=== PATIENT | female | born 1975 | race Caucasian/White ===

== ENCOUNTER 2017-02-12 16:21 | Emergency (ER) | payer SELFPAY ==
[2017-02-12] MEDS ORDERED: KETOROLAC 15 MG/1 ML SDV IVP ONE (16:35)
[2017-02-12] MEDS ORDERED: NS 1,000 ML IV ONE (16:35)
[2017-02-12] MEDS ORDERED: KETOROLAC 15 MG/1 ML SDV ONE (16:36)
--- NOTE | 2017-02-12 16:39 | EDPHY ---
H & P Stated Complaint: Acute onset right flank pain for 15 mins. Time Seen by Provider: 02/12/17 16:34 HPI/ROS: CHIEF COMPLAINT: Right flank pain HISTORY OF PRESENT ILLNESS: The patient is a 41 y/o female complaining of acute onset right flank pain this afternoon 15 minutes ago. She complains of severe waxing and waning right flank pain that radiates to her groin. She has associated suprapubic pain and nausea, but no vomiting, dysuria, or hematuria. No alleviating or aggravating factors. She denies chance of . She has no prior history of kidney stones, though her father has a history of stones. REVIEW OF SYSTEMS: Constitutional: No fever, no chills Eyes: No visual changes ENT: No sore throat Respiratory: No cough, no shortness of breath Cardiac: No chest pain Gastrointestinal: +nausea, no vomiting, no abdominal pain Genitourinary: No hematuria, no dysuria Musculoskeletal: No leg pain or swelling Skin: No rash Neurological: No headache, no numbness, no weakness Psychiatric: No depression - Personal History Current Tetanus Diphtheria and Acellular Pertussis (TDAP): Unsure - Medical/Surgical History PMH: Denies Hx Asthma: No Hx Chronic Respiratory Disease: No Hx Diabetes: No Hx Cardiac Disease: No Hx Renal Disease: No Hx Cirrhosis: No Hx Alcoholism: No Hx HIV/AIDS: No Hx Splenectomy or Spleen Trauma: No Other PMH: Denies - Social History Smoking Status: Never smoked Additional Social History: Lives in [place]. Nonsmoker. . - Physical Exam Exam: General Appearance: Alert, appears in pain Eyes: Pupils equal and round, no conjunctival pallor or injection ENT, Mouth: Mucous membranes moist Neck: Normal inspection Respiratory: Lungs are clear to auscultation Cardiovascular: Regular rate and rhythm Gastrointestinal: Abdomen is soft and non-tender Back: Right CVA tenderness Neurological: A&O, nonfocal exam Skin: Warm and dry, no rash Extremities: Nontender, no pedal edema Psychiatric: Mood and affect normal Constitutional: Initial Vital Signs Temperature (C) 36.6 C 02/12/17 16:22 Heart Rate 70 02/12/17 16:22 Respiratory Rate 20 02/12/17 16:22 Blood Pressure 121/85 H 02/12/17 16:22 O2 Sat (%) 100 02/12/17 16:22 O2 Delivery Mode Room Air Allergies/Adverse Reactions: No Known Allergies Allergy (Unverified 02/12/17 16:40) Home Medications: Medication Instructions Recorded Ondansetron Odt [Zofran Odt 4 mg 4 mg PO Q4 PRN #6 tab 02/12/17 (*)] oxyCODONE/APAP 5/325 [Percocet 1 tab PO Q4 PRN #10 tab 02/12/17 5/325 (*)] Medical Decision Making - Diagnostics Imaging Results: Imaging Impressions Abdomen/Pelvis CT 02/12/17 16:35 Impression: 1. Mild right hydronephrosis and hydroureter due to a tiny calculus in the distal right ureter, at ureterovesical junction. 2. Bilateral nephrolithiasis. 3. No intra-abdominal mass or lymphadenopathy. Findings discussed with Emergency Department physician, Sirisha Jaimes, 2016, 17:45. Attention: This CT examination is specifically designed to evaluate patients who are clinically suspected of having acute obstructive uropathy. This examination does not use radiographic contrast, and as such, provides only a limited evaluation of the abdomen, pelvis and retroperitoneum. If there is further clinical suspicion for pathological conditions other than obstructive uropathy, a complete CT evaluation of the abdomen and pelvis utilizing intravenous, oral, and rectal contrast should be considered. Imaging: Discussed imaging studies w/ anaesthetic technician Radiologist ED Course/Re-evaluation: This is a 41 y/o female who presents with acute onset right flank pain and suprapubic pain for the last 15 minutes. She has right CVA tenderness and a benign abdomen on exam. Presentation consistent acute severe renal colic. Plan for IV, labs, UA, abdominal CT, and symptom management. 15mg IV Toradol, 4mg IV Zofran, 1mg IV Dilaudid, and 1L IV NS administered. Abdominal CT shows right kidney stone. Reevaluated patient and discussed results. She feels improved after medication administration. Plan to observe for another hour and discharge home if she remains stable with her pain well- managed. Reassessed patient. She is feeling much better. Abdomen remains benign. She will be discharged with scripts for Percocet and Zofran along with ibuprofen directions and referral to urology for follow up. Return precautions discussed. She is comfortable with discharge plan. Differential Diagnosis: Differential diagnosis includes though it is not limited to appendicitis, cholecystitis, diverticulitis, pyelonephritis, bowel perforation, small bowel obstruction. - Data Points Laboratory Results: Laboratory Results 02/12/17 16:41 02/12/17 16:41 02/12/17 02/12/17 02/12/17 16:41 16:41 16:41 WBC 7.34 10^3/uL 10^3/uL (3.80-9.50) RBC 4.55 10^6/uL 10^6/uL (4.18-5.33) Hgb 14.5 g/dL g/dL (12.6-16.3) Hct 41.1 % % (38.0-47.0) MCV 90.3 fL fL (81.5-99.8) MCH 31.9 pg pg (27.9-34.1) MCHC 35.3 g/dL g/dL (32.4-36.7) RDW 12.3 % % (11.5-15.2) Plt Count 241 10^3/uL 10^3/uL (150-400) MPV 9.6 fL fL (8.7-11.7) Neut % (Auto) 58.5 % % (39.3-74.2) Lymph % (Auto) 31.9 % % (15.0-45.0) [place] % (Auto) 8.3 % % (4.5-13.0) Eos % (Auto) 0.8 % % (0.6-7.6) Baso % (Auto) 0.4 % % (0.3-1.7) Nucleat RBC Rel Count 0.0 % % (0.0-0.2) Absolute Neuts (auto) 4.29 10^3/uL 10^3/uL (1.70-6.50) Absolute Lymphs (auto) 2.34 10^3/uL 10^3/uL (1.00-3.00) Absolute Monos (auto) 0.61 10^3/uL 10^3/uL (0.30-0.80) Absolute Eos (auto) 0.06 10^3/uL 10^3/uL (0.03-0.40) Absolute Basos (auto) 0.03 10^3/uL 10^3/uL (0.02-0.10) Absolute Nucleated RBC 0.00 10^3/uL 10^3/uL (0-0.01) Immature Gran % 0.1 % % (0.0-1.1) Immature Gran # 0.01 10^3/uL 10^3/uL (0.00-0.10) Sodium 142 mEq/L mEq/L (134-144) Potassium 3.3 mEq/L L mEq/L (3.5-5.2) Chloride 104 mEq/L mEq/L (97-110) Carbon Dioxide 23 mEq/l mEq/l (22-31) Anion Gap 15 mEq/L mEq/L (8-16) BUN 14 mg/dL mg/dL (7-23) Creatinine 0.7 mg/dL mg/dL (0.6-1.0) Estimated GFR > 60 Glucose 106 mg/dL H mg/dL (70-100) Calcium 9.7 mg/dL mg/dL (8.5-10.4) Beta HCG, Qual NEGATIVE Medications Given: Discontinued Medications Hydromorphone HCl (Dilaudid) 1 mg IVP EDNOW ONE Stop: 02/12/17 16:46 Last Admin: 02/12/17 16:51 Dose: 1 mg Sodium Chloride (Ns) 1,000 mls @ 3,000 mls/hr IV EDNOW ONE Stop: 02/12/17 16:54 Last Admin: 02/12/17 16:40 Dose: 1,000 mls Ketorolac Tromethamine (Toradol) 15 mg IVP EDNOW ONE Stop: 02/12/17 16:36 Last Admin: 02/12/17 16:40 Dose: 15 mg Ondansetron HCl (Zofran) 4 mg IVP EDNOW ONE Stop: 02/12/17 16:46 Last Admin: 02/12/17 16:51 Dose: 4 mg Ondansetron HCl (Zofran Odt 4 Mg Prepack#2) 1 btl TAKEHOME EDNOW ONE Stop: 02/12/17 17:49 Last Admin: 02/12/17 18:49 Dose: 1 btl Oxycodone/Acetaminophen (Percocet 5/325mg Prepack#4) 1 btl TAKEHOME EDNOW ONE Stop: 02/12/17 17:49 Last Admin: 11/09/17 18:49 Dose: 1 btl Oxycodone/Acetaminophen (Percocet 5/325) 1 tab PO EDNOW ONE Stop: 02/12/17 18:41 Last Admin: 02/12/17 18:48 Dose: 1 tab Departure - Departure Disposition: Home, Routine, Self-Care Clinical Impression: Ureteral stone Condition: Good Instructions: Oxycodone/Acetaminophen (By mouth), Ondansetron (By mouth), Kidney Stones (ED), How to Strain Your Urine (ED) Additional Instructions: 1. Take 600mg ibuprofen 3 times daily for the next few days. 2. Use Percocet as prescribed every 4 hours for severe pain not improved by ibuprofen. 3. Use Zofran as prescribed every 6 hours as needed for nausea or vomiting. 4. Strain urine as directed. 5. Follow up with the urologist you have been referred to next week. 6. Return to the ED for worsening of condition. Referrals: Lucas Salomon MD [Medical Doctor] - As per Instructions Prescriptions: Ondansetron Odt [Zofran Odt 4 mg (*)] 4 mg PO Q4 PRN #6 tab PRN Reason: Nausea oxyCODONE/APAP 5/325 [Percocet 5/325 (*)] 1 tab PO Q4 PRN #10 tab PRN Reason: pain Report Scribed for: Sirisha Jaimes Report Scribed by: Chelsey Leonard Date of Report: 02/12/17 Time of Report: 17:06 Physician Review and Approval Statement: 02/12/17 17:06 Portions of this note were transcribed by a medical coder. I personally performed a history, physical exam, medical decision making, and confirmed accuracy of information the transcribed note.
[2017-02-12] MEDS ORDERED: HYDROmorphONE/DILAUDID 1 MG/ML INJ IVP ONE (16:45)
[2017-02-12] MEDS ORDERED: ONDANSETRON 4 MG/2 ML VIAL IVP ONE (16:45)
[2017-02-12] MEDS ORDERED: HYDROmorphONE/DILAUDID 1 MG/ML INJ ONE (16:46)
[2017-02-12] MEDS ORDERED: ONDANSETRON 4 MG/2 ML VIAL ONE (16:46)
[2017-02-12 17:01] LABS: % IMMATURE GRANULYOCYTES 0.1 % (0.0-1.1); ABSOLUTE IMMATURE GRANULOCYTES 0.01 10^3/uL (0.00-0.10); ADD DIFF? NO; ADD MORPH? NO; ADD SCAN? NO; ATYPICAL LYMPHOCYTE FLAG 40 (0-99); FRAGMENT RBC FLAG 0 (0-99); HEMATOCRIT 41.1 % (38.0-47.0); HEMOGLOBIN 14.5 g/dL (12.6-16.3); LEFT SHIFT FLG 0 (0-99); LIPEMIA HEMOLYSIS FLAG 90 (0-99); MEAN CELL HEMOGLOBIN 31.9 pg (27.9-34.1); MEAN CELL HEMOGLOBIN CONCENTR. 35.3 g/dL (32.4-36.7); MEAN CELL VOLUME 90.3 fL (81.5-99.8); MEAN PLATELET VOLUME 9.6 fL (8.7-11.7); PLATELET CLUMPS FLAG 0 (0-99); PLATELET COUNT 241 10^3/uL (150-400); RED BLOOD CELL COUNT 4.55 10^6/uL (4.18-5.33); RED CELL DISTRIBUTION WIDTH 12.3 % (11.5-15.2)
[2017-02-12 17:07] LABS: ANION GAP 15 mEq/L (8-16); CALCIUM 9.7 mg/dL (8.5-10.4); CARBON DIOXIDE 23 mEq/l (22-31); CHLORIDE 104 mEq/L (97-110); CREATININE 0.7 mg/dL (0.6-1.0); GLOMERULAR FILTRATION RATE > 60; GLUCOSE 106 mg/dL (70-100); POTASSIUM 3.3 mEq/L (3.5-5.2); SODIUM 142 mEq/L (134-144)
[2017-02-12] MEDS ORDERED: ONDANSETRON 4MG PREPACK#2 BTL TAKEHOME ONE (17:48)
[2017-02-12] MEDS ORDERED: OXYCODONE/APAP 5/325MG PREPACK#4 BTL TAKEHOME ONE (17:48)
[2017-02-12] MEDS ORDERED: OXYCODONE/APAP 5/325 TAB PO ONE (18:40)
[2017-02-12 18:57] VITALS: RESP 18
[2017-02-12 18:59] VITALS: BP 122/65; PULSE 71; TEMP 98.1; O2SAT 95
== END 2017-02-12 20:28 | disposition home or self-care (01) ==
DX: N20.1 Calculus of ureter (principal)
CPT/HCPCS: 96374; J1170; J1885; J2405